=== PATIENT | male | born 1960 | race Caucasian/White ===

== ENCOUNTER 2020-01-08 05:56 | Emergency (ER) | payer OTHER ==
[~2020-01-08] VITALS: Ht 182.9 cm; Wt 82.6 kg
[~2020-01-08 05:56] MED LIST: IBUPROFEN 800800 M1 PO; MULTI VITAMIN1 EACH PO; NORCO 5-325 TA1 EACH PO; SENNA-S TABLET1 EACH PO
[2020-01-08 06:27] LABS: HEMATOCRIT 46.5 % (42.0-52.0); HEMOGLOBIN 15.9 gm/dL (14.0-18.0); MCH 29.6 pg (26.0-34.0); MCHC 34.2 g/dL (28.0-37.0); MCV 86.7 fL (80.0-100.0); RBC 5.36 mil/uL (4.50-6.00); RDW 12.8 % (10.5-14.5); WBC 14.8 thou/uL (4.0-11.0)
[2020-01-08 06:30] LABS: ANION GAP 8 mmol/L (7-16); BUN 24 mg/dL (7-18); CALCIUM 9.4 mg/dL (8.5-10.1); CHLORIDE 102 mmol/L (98-107); CO2 29 mmol/L (21-32); CREATININE 1.2 mg/dL (0.7-1.3); GLUCOSE 158 mg/dL (74-106); POTASSIUM 3.8 mmol/L (3.5-5.1); SODIUM 139 mmol/L (136-145)
[2020-01-08 06:45] LABS: ALBUMIN 4.7 g/dL (3.4-5.0); LIPASE 6322 U/L (73-393); SGOT 27 U/L (15-37); SGPT 38 U/L (30-65); TOTAL BILIRUBIN 0.6 mg/dL (<0.1-1.0); TOTAL PROTEIN 8.2 g/dL (6.4-8.2); TROPONIN-I <0.06 ng/mL (<0.06)
[2020-01-08 08:07] LABS: URINE BILIRUBIN NEGATIVE (Negative); URINE BLOOD TRACE (Negative); URINE CLARITY CLEAR; URINE COLOR YELLOW; URINE GLUCOSE-RANDOM* NEGATIVE (Negative); URINE KETONES NEGATIVE (Negative); URINE LEUKOCYTES-REFLEX NEGATIVE (Negative); URINE NITRITE-REFLEX NEGATIVE (Negative); URINE PROTEIN (DIPSTICK) NEGATIVE (Negative); URINE SPECIFIC GRAVITY 1.015 (1.005-1.035); URINE UROBILINOGEN 0.2 E.U./dl (0.2-1.0)
[2020-01-08] MEDS ORDERED: ZOFRAN ODT4 MG PO (08:25)
[2020-01-08] MEDS ORDERED: PERCOCET 5-3251 EACH PO (08:25)
[2020-01-08 09:41] VITALS: BP 142/71
--- NOTE | 2020-01-09 08:58 | EKG ---
[facility] [place] [address] ELECTROCARDIOGRAM REPORT Name: NIKHIL MANNING Room #: [facility]..#: [id number] Admission: 01/08/20 Attend Phys: Discharge: 01/08/20 Date of : 58 Report #: [id number] THIS REPORT FOR: cc: Barak Macdonald MD, Neal A. MD Couchonnal, Luis F. MD ~ THIS REPORT FOR: //name// [facility] ED Test Date: 2020-01-08 Test Time: 06:16:29 Pat Name: NIKHIL MANNING Department: Room: Gender: Skin Therapist: [place] [id number] : 1960 Requested By: Parvin Girard Order Number: [id number] MD: Glen Schaffer Measurements Intervals [place] Rate: 70 P: 33 ND: 158 QRS: 48 QRSD: 99 T: 23 QT: 405 QTc: 437 Interpretive Statements Sinus rhythm Left ventricular hypertrophy No previous ECG available for comparison Electronically Signed On 01-09-2020 8:56:28 CDT by Glen Schaffer [email or web address] <ELECTRONICALLY SIGNED> By: Glen Schaffer MD 01/09/20 0856 5 5 Glen Schaffer MD /ELLI
== END 2020-01-08 09:42 | disposition home or self-care (01) ==
LOC: ER 05:56
PROVIDERS: Student in an Organized Health Care Education/Training Program
DX: K85.90 Acute pancreatitis without necrosis or infection, unspecified (principal); R11.2 Nausea with vomiting, unspecified; Z90.89 Acquired absence of other organs

== ENCOUNTER → 2021-03-28 | Outpatient (CLI) | payer OTHER ==
[~2021-03-28] MED LIST changes: +PERCOCET 5-3251 EACH PO; +ZOFRAN ODT4 MG PO
== END ==
LOC: CAT 11:08
PROVIDERS: ATTEND Family Medicine
DX: Z13.6 Encounter for screening for cardiovascular disorders (principal); E78.00 Pure hypercholesterolemia, unspecified; I25.10 Atherosclerotic heart disease of native coronary artery without angina pectoris